=== PATIENT | female | born 1985 | race Asian ===

== ENCOUNTER 2016-08-01 20:21 | Emergency (ER) | payer OTHER ==
[2016-08-01 20:39] VITALS: PULSE 76
[2016-08-01] MEDS ORDERED: ONDANSETRON 4 MG/2 ML VIAL ONE (21:57)
[2016-08-01] MEDS ORDERED: ONDANSETRON 4 MG/2 ML VIAL IVP ONE (22:01)
[2016-08-01] MEDS ORDERED: NS 1,000 ML IV ONE (22:01)
--- NOTE | 2016-08-01 22:01 | EDPHY ---
HPI/HX/ROS/PE/MDM Narrative: Chief complaint: Abdominal pain, nausea, vomiting, diarrhea HPI: 31-year-old female had pizza and salad for dinner. About 20 minutes after eating she began developing some abdominal cramping. She had some nausea and vomited several times. She has also had some diarrhea. Patient states that after she had an episode of loose stools once he arrived here her abdominal pain subsided. She is now feeling just nauseated. No fevers or chills. No past medical history. Respiratory was 3 weeks ago and normal. She has never been . No prior surgeries. ROS: 10 point Review of Systems is negative except as noted in the HPI. Past medical history: None Medications: None Allergies: No known drug allergies Physical exam: Gen: Awake, Alert, No Distress HEENT: Nose: no rhinorrhea Eyes: PERRLA, EOMI Mouth: Moist mucosa Neck: Supple, no JVD Chest: nontender, lungs clear to auscultation Heart: S1, S2 normal, no murmur Abd: Soft, non-tender, no guarding Back: no CVA tenderness, no midline tenderness Ext: no edema, non-tender Skin: no rash Neuro: CN II-XII intact, Sensation grossly intact, Strength 5/5 in bilateral upper and lower extremities ED Course: 31-year-old with symptoms of gastroenteritis. These began shortly after she ate some pizza. Did not think that this is food poisoning. She has had nausea vomiting and diarrhea. Her abdomen is soft and benign. She is hydrated here. She is tolerating liquids. Plan will be to discharge with follow-up as an outpatient. Patient does state that she has had some chronic GI issues which is not elaborating is requesting referral to a interpretative dancer as well. - Data Points Medications Given: Discontinued Medications Sodium Chloride (Ns) 1,000 mls @ 0 mls/hr IV ONCE ONE PRN Reason: Wide Open Stop: 08/01/16 22:02 Last Admin: 08/01/16 22:26 Dose: 1,000 mls Ondansetron HCl (Zofran) 4 mg IVP EDNOW ONE Stop: 08/01/16 22:02 Last Admin: 08/01/16 22:26 Dose: 4 mg General Time Seen by Provider: 08/01/16 21:52 Initial Vital Signs: Initial Vital Signs Temperature (C) 36.3 C 08/01/16 20:32 Heart Rate 76 08/01/16 20:32 Respiratory Rate 15 08/01/16 20:32 Blood Pressure 115/79 08/01/16 20:32 O2 Sat (%) 97 08/01/16 20:32 O2 Delivery Mode Room Air Allergies/Adverse Reactions: No Known Allergies Allergy (Unverified 08/01/16 20:32) Home Medications: Medication Instructions Recorded NK [No Known Home Meds] 08/01/16 Departure - Departure Disposition: Home, Routine, Self-Care Clinical Impression: Acute gastroenteritis Condition: Good Instructions: Ondansetron (By mouth), Gastroenteritis (ED), Acute Nausea and Vomiting (ED) Additional Instructions: You may take ondansetron for nausea and vomiting. Follow up with her primary care physician and 2-3 days for any concerns. Return to the emergency depart for increasing nausea and vomiting, worsening abdominal pain, fevers, chills, or any other concerns. Referrals: NONE *PRIMARY CARE P,. [Primary Care Provider] - As per Instructions Jose Pantoja MD [Medical Doctor] - As per Instructions
[2016-08-01] MEDS ORDERED: ONDANSETRON 4MG PREPACK#2 BTL TAKEHOME ONE (23:01)
[2016-08-01 23:11] VITALS: BP 106/65; RESP 16; TEMP 97.9; O2SAT 96
== END 2016-08-01 23:11 | disposition home or self-care (01) ==
DX: K52.9 Noninfective gastroenteritis and colitis, unspecified (principal)
CPT/HCPCS: 96374; J2405